=== PATIENT | female | born 1950 | race Caucasian/White ===

== ENCOUNTER 2021-02-08 11:12 | Emergency (ER) | payer MEDICARE ==
[2021-02-08] MEDS ORDERED: Acetaminophen 500 MG TAB ONE (12:10)
[2021-02-08] MEDS ORDERED: Dexamethasone 10 MG/ML VIAL ONE (12:10)
[2021-02-08] MEDS ORDERED: Ventolin HFA Inhaler 60 PUFF INHALER ONE (12:11)
[2021-02-08 12:24] LABS: #Monocytes 0.6 10x3/uL (0.0-1.1); %Basophils 0.5 % (0.0-2.0); %Eosinophils 0.6 % (0.0-6.0); %Lymphocytes 9.4 % (18.0-47.0); %Monocytes 9.6 % (0.0-10.0); %Neutrophils 79.4 % (40.0-75.0); Hemoglobin 12.6 g/dL (12.0-15.5); Mean Corpuscular HGB CONC 33.9 g/dL (32.0-36.0); Mean Corpuscular Hemoglobin 30.7 pg (27.0-33.0); Mean Corpuscular Volume 90.5 fl (81.6-98.3); Mean Platelet Volume 11.8 fl (7.4-10.4); RBC Distribution Width 13.2 % (11.5-14.5); Red Blood Cell (RBC) Count 4.11 10x6/uL (3.90-5.03); White Blood Cell (WBC) Count 6.3 10x3/uL (3.5-10.5)
[2021-02-08 12:26] LABS: Platelet Count 145 10x3/uL (150-450)
[2021-02-08 13:00] LABS: ALT (SGPT) 10 U/L (8-55); AST (SGOT) 21 U/L (5-34); Albumin 4.1 g/dL (3.4-4.8); Alkaline Phosphatase 45 U/L (40-110); Anion Gap 16 mmol/L (10-20); BUN (Urea Nitrogen) 14 mg/dL (9.8-20.1); Bilirubin, Total 0.6 mg/dL (0.2-1.2); Calc. Creatinine Clearance 0 mL/min (70-130); Calcium 9.9 mg/dL (7.8-10.44); Carbon Dioxide 25 mmol/L (23-31); Chloride 103 mmol/L (98-107); Globulin 4.2 g/dL (2.4-3.5); Glucose 120 mg/dL (80-115); Potassium 3.9 mmol/L (3.5-5.1); Protein, Total 8.3 g/dL (5.8-8.1); Sodium 140 mmol/L (136-145)
[2021-02-08 18:54] LABS: SARS-CoV-2 PCR by NAA Not Detected (NotDetected)
== END 2021-02-08 15:46 | disposition home or self-care (01) ==
LOC: CSHERS 11:12
DX: R05 Cough (principal); R50.9 Fever, unspecified; R06.02 Shortness of breath; Z20.822 Contact with and (suspected) exposure to COVID-19; E03.9 Hypothyroidism, unspecified; I10 Essential (primary) hypertension
CPT/HCPCS: 71045; 80053; 83605; 84484; 85025; 85379; 87040; 93005; U0003; U0005; 96374; J1100